=== PATIENT | female | born 1980 | race Hispanic/Latino ===

== ENCOUNTER 2017-07-07 03:02 | Inpatient (IN) | payer MEDICAID, SELFPAY ==
[2017-07-07 03:39] VITALS: BMI 27.4
--- NOTE | 2017-07-07 04:20 | PDOC.LDHP ---
Labor and Delivery H&P Chief complaint: contractions HPI: 36 yo @ 39.5 by LMP/10 week US here with contractions q5 min for 3 hours. She states that she has been guido consistently since yesterday afternoon , however the contractions increased in frequency and intensity starting at about 0100. She denies associated loss of fluid or decreased movement. She did notice some blood tinged mucus in the past 12 hours. Her course has been complicated only by AMA. Her previous deliveries were without complication. Current gestational age (weeks): 39 (39.5) Due date: 07/09/17 Dating criteria: last menstrual period, first trimester ultrasound Grav: 4 Para: 3 Current complications: other (AMA) Current medications: pre-wayne vitamins Allergies/Adverse Reactions: Allergies Allergy/AdvReac Type Severity Reaction Status Date / Time No Known Allergies Allergy Verified 07/07/17 03:26 - Physical Exam Vital signs reviewed and normal: yes General: NAD, resting, breathing through contractions Heart: RRR Lungs: nonlabored breathing Abdomen: gravid Extremeties: no edema FHT: category 1, variability present, absent or minimal variables [place] contractions every: 5-6 min - Vaginal Exam cm dilated: 5 Effacement: 90% Station: -2 - OB Labs Blood type: O RH: positive Antibody Screen: negative HIV: negative RPR: negative HEPSAg: negative 1 hour GCT: negative GBS: negative Urine drug screen: negative Rubella: immune - Assessment L&D Assessment: term patient in labor - Plan Plan: admit to L&D -: Term patient in labor -pt is requesting intermittent monitoring. Given current Cat 1 strip and intact membranes, will proceed per unit protocol after 20 min on monitor -pt does not want epidural or IV pain management -Will order SL, no IVF at this time -CVE in 2 hours AMA -no other complications, monitor patient as above.
[2017-07-07] MEDS ORDERED: Ibuprofen 800 MG TAB PO PRN (04:25)
[2017-07-07] MEDS ORDERED: Methylergonovine 0.2 MG/ML VIAL IM PRN (04:25)
[2017-07-07] MEDS ORDERED: Misoprostol 200 MCG TAB PR PRN (04:25)
[2017-07-07] MEDS ORDERED: HYDROcodone/Acetaminophen 5/325 mg Tablet PO PRN ×3 (04:25→11:46)
[2017-07-07] MEDS ORDERED: Ondansetron HCl/PF 4 MG/2 ML Vial IVP PRN (04:25)
[2017-07-07] MEDS ORDERED: Carboprost 250 MCG/ML AMP IM PRN (04:25)
[2017-07-07] MEDS ORDERED: Promethazine HCl 25 MG/ML VIAL IM PRN (04:25)
[2017-07-07] MEDS ORDERED: Diphenoxylate HCl/Atropine Tablet PO PRN (04:25)
[2017-07-07] MEDS ORDERED: Lidocaine 1% (PF) 30 ML VIAL SC PRN (04:25)
[2017-07-07 04:54] LABS: Mean Corpuscular HGB CONC 33.1 g/dL (32.0-36.0); Mean Corpuscular Hemoglobin 27.2 pg (27.0-31.0); Mean Corpuscular Volume 82.1 fl (81.0-99.0); Mean Platelet Volume 10.6 fL (7.4-10.4); Platelet Count 114 thou/uL (130-400); Red Blood Cell (RBC) Count 4.06 mill/uL (4.20-5.40); White Blood Cell (WBC) Count 7.7 thou/uL (4.8-10.8)
[2017-07-07 05:19] LABS: HBSAg Index 0.15 S/CO (0-0.99); Hep B Surf Ag Non-Reactive S/CO (NonReactive); Syphilis Antibody Nonreactive (Nonreactive); Syphilis Antibody Index 0.04 S/CO (<1.00 Non-Reactive)
--- NOTE | 2017-07-07 06:45 | PDOC.LDPN ---
Labor & Delivery Progress Note - Subjective Subjective: comfortable, painful contractions, loss of fluid (SROM with mec and bloody show) - Objective Vital signs reviewed and normal: yes General: NAD, resting, breathing through contractions Uterine fundus: palpable contractions Dilation: 7 Effacement: 90% Station: -1 FHT: category 2, variable decelerations, variability present [place] contractions every: 3-5 Other exam findings: mec in fluid, bloody show Resuscitative measures: maternal position change - Assessment (1) Term Code(s): Z34.80 - ENCOUNTER FOR SUPRVSN OF NORMAL , UNSP TRIMESTER Current Visit: Yes Status: Acute Comment: Patient is breathing through contractions. Does not want anesthesia. Variable decels have become more common over the past 30 min. Will reposition and monitor via continuous monitoring. (2) AMA (advanced maternal age) multigravida 35+ Code(s): O09.529 - SUPERVISION OF ELDERLY MULTIGRAVIDA, UNSPECIFIED TRIMESTER Current Visit: Yes Status: Acute Comment: Monitor as above Plan: continue plan of care, resuscitative measures
[2017-07-07] MEDS ORDERED: Lactated Ringer's 500 ML IV SCH (07:45)
--- NOTE | 2017-07-07 08:18 | PDOC.LDPN ---
Labor & Delivery Progress Note - Subjective Subjective: painful contractions, vaginal pressure - Objective Vital signs reviewed and normal: yes General: breathing through contractions Uterine fundus: palpable contractions SVE: 8.5/90/-1 Dilation: 8.5 Effacement: 90% Station: -1 FHT: category 2, variable decelerations, variability present [place] contractions every: q2-3min Other exam findings: baseline 140's, variable decelerations down to 60 bpm with ctx, moderate va AROM: meconium stained fluid Resuscitative measures: maternal IV fluids, maternal position change - Assessment (1) Term Code(s): Z34.80 - ENCOUNTER FOR SUPRVSN OF NORMAL , UNSP TRIMESTER Current Visit: Yes Status: Acute Comment: 36yo at 39.5 by LMP/1T u/s presented in latent labor. Patient has made good change since admission, now SVE 8.5/90/-1. Patient had SROM with thick mec fluid. VSS. FHT cat 2 with consistent variables with ctx, likely related to cord compression. Variables recover relatively quickly and patient continues to make good change. Consider amnioinfusion. Will continue maternal position changes for now and reevaluate for amnioinfusion in 30 min. (2) AMA (advanced maternal age) multigravida 35+ Code(s): O09.529 - SUPERVISION OF ELDERLY MULTIGRAVIDA, UNSPECIFIED TRIMESTER Current Visit: Yes Status: Acute Comment: Monitor as above Plan: continue plan of care, resuscitative measures
[2017-07-07] MEDS ORDERED: Lactated Ringer's 1,000 ML IV SCH (08:30)
[2017-07-07] MEDS: LR / Pitocin 40 units/1000 ml 1,000 ML IV PRN ×2 (09:15→10:16)
[2017-07-07] MEDS ORDERED: Methylergonovine 0.2 MG/ML VIAL ONE (09:17)
--- NOTE | 2017-07-07 09:44 | PDOC.OPDEL ---
OB Operative/Delivery Note Delivery Dr/Surgeon: Nimo/Baldev/Aide Pre-Delivery Diagnosis: active labor Procedure/Post Delivery Dx: spontaneous vaginal delivery Weeks gestation: 39 (5 days) Anesthesia: none - Additional Findings/Plan Placenta delivered: spontaneous Repaired Obstetrical Laceration: none Estimated blood loss: 300ml Compilations/Other Findings: Delivery Note: This is 36 yo F @ 39.5 wks who delivered a viable F at 0911 on 07/07/17. Following an uneventful antepartum course, a vigorous female was delivered over an intact perineum in the occipitoanterior position. Anterior Shoulder and then remainder of the body delivered. Nuchal cord x1, that was reduced. The head was held down and mouth and nares were bulb suctioned. Cord clamped and cut and cord blood collected. Placenta delivered intact with a 3 vessel cord noted. Fundal massage was performed and the fundus was firm. The cervix and vagina were inspected and found to be free of lacerations. Infant went to nursery in good condition for routine care. Apgars were 9/9 at 1 & 5 minutes, respectively. Patient tolerated delivery well and went to after routine recovery/care. Post delivery plan: routine recovery <Luna Suero - Last Filed: 07/07/17 09:41> Attending Addendum - Attending Addendum Date/Time: 07/08/17 [id number] I personally evaluated the patient and discussed the management with Dr. Suero I agree with the History, Examination, Assessment and Plan documented above with any addition or exceptions noted below. I was present for the entire second and third stage of collaborative teacher. <Agustin Noble - Last Filed: 07/08/17 07:27>
[2017-07-07] MEDS ORDERED: Ibuprofen 800 MG TAB PO SCH (10:30)
[2017-07-07] MEDS ORDERED: Lanolin Ointment 7 GM TUBE TOP PRN (11:46)
[2017-07-07] MEDS ORDERED: Adacel (T-DAP) 0.5 ML VIAL IM ONE (11:46)
[2017-07-07] MEDS ORDERED: Bisacodyl 10 MG SUPP PR PRN (11:46)
[2017-07-07] MEDS: HYDROcodone/Acetaminophen 5/325 mg Tablet PO PRN ×2 (12:14→17:31)
[2017-07-07] MEDS: Ferrous Sulfate 325 MG TAB PO SCH (16:22)
[2017-07-07] MEDS: Ibuprofen 800 MG TAB PO SCH (21:08)
[2017-07-07] MEDS: Docusate Calcium (SURFAK) 240 MG CAP PO SCH (21:08)
[2017-07-08] MEDS: Ibuprofen 800 MG TAB PO SCH ×2 (05:01→12:57)
[2017-07-08 05:49] LABS: Mean Corpuscular HGB CONC 32.1 g/dL (32.0-36.0); Mean Platelet Volume 10.7 fL (7.4-10.4); Platelet Count 90 thou/uL (130-400); RBC Distribution Width 17.3 % (11.5-14.5); Red Blood Cell (RBC) Count 3.34 mill/uL (4.20-5.40); White Blood Cell (WBC) Count 7.9 thou/uL (4.8-10.8)
--- NOTE | 2017-07-08 07:50 | PDOC.PP ---
Post Progress Note Post Day #: 1 Subjective: Doing well. Pain well controlled with current meds. Eating well. . Minimal lochia. Ready to go home. PO intake tolerated: yes Flatus: yes Ambulation: yes Vital Signs (12 hours) Temp Pulse Resp BP BP 07/08/17 04:00 97.8 F 64 20 96/54 L 07/08/17 00:00 98.3 F 67 18 91/50 L 07/07/17 20:00 98.6 F 58 L 18 104/56 L Weight Weight 70.307 kg - Physical Examination General: NAD Cardiovascular: no m/r/g, RRR Respiratory: clear to auscultation bilaterally, non-labored breathing Abdominal: lochia (mimimal), no distention, appropriately TTP Extremities: negative homans (B) Neurological: no gross focal deficits Psychiatric: A&Ox3, normal affect Result Diagrams: 07/08/17 04:46 Additional Labs: Post Labs Blood Type O POSITIVE 07/07/17 04:11 Hep Bs Antigen Non-Reactive S/CO (NonReactive) 07/07/17 04:11 (1) Normal spontaneous vaginal delivery Code(s): O80 - ENCOUNTER FOR FULL-TERM UNCOMPLICATED DELIVERY Status: Acute Comment: Doing well, will DC with follow up in 2 wks at [facility]. Plan for nexplanon - discuss at clinic. pelvic rest x 6 wks. (2) Anemia Code(s): D64.9 - ANEMIA, UNSPECIFIED Status: Chronic Comment: cont once daily iron pills. (3) AMA (advanced maternal age) multigravida 35+ Code(s): O09.529 - SUPERVISION OF ELDERLY MULTIGRAVIDA, UNSPECIFIED TRIMESTER Status: Resolved <Nancy De Paz - Last Filed: 07/08/17 07:47> Vital Signs (12 hours) Temp Pulse Resp BP BP 07/08/17 07:55 98.0 F 61 18 100/60 07/08/17 04:00 97.8 F 64 20 96/54 L 07/08/17 00:00 98.3 F 67 18 91/50 L 07/07/17 20:00 98.6 F 58 L 18 104/56 L Weight Weight 155 lb Result Diagrams: 07/08/17 04:46 Additional Labs: Post Labs Blood Type O POSITIVE 07/07/17 04:11 Hep Bs Antigen Non-Reactive S/CO (NonReactive) 07/07/17 04:11 <Agustin Noble - Last Filed: 07/08/17 07:58> Attending Addendum - Attending Addendum Date/Time: 07/08/17 0758 I personally evaluated the patient and discussed the management with Dr. De Paz I agree with the History, Examination, Assessment and Plan documented above with any addition or exceptions noted below. <Agustin Noble - Last Filed: 07/08/17 07:58>
[2017-07-08 07:56] VITALS: BP 100/60; TEMP 98
[2017-07-08] MEDS: Docusate Calcium (SURFAK) 240 MG CAP PO SCH (08:55)
[2017-07-08] MEDS: Ferrous Sulfate 325 MG TAB PO SCH (08:56)
[2017-07-08] MEDS ORDERED: Prenatal Vitamin 1 TAB PO SCH (09:00)
== END 2017-07-08 16:45 | disposition home or self-care (01) | DRG 775 ==
LOC: L&D/OP 03:02 → L&D 04:02 → 3SW 12:04
PROVIDERS: ADMIT Obstetrics & Gynecology; ATTEND Obstetrics & Gynecology
PROC: 10E0XZZ Delivery of Products of Conception, External Approach (ICD-10-PCS; principal; 2017-07-07)
DX: O99.02 Anemia complicating childbirth (principal); O69.1XX0 Labor and delivery complicated by cord around neck, with compression, not applicable or unspecified; Z37.0 Single live birth; Z3A.39 39 weeks gestation of pregnancy
CPT/HCPCS: 36415; 51701; 85027; 86780; 87340; 99285; J2001; J2210